=== PATIENT | female | born 1985 | race Caucasian/White ===

== ENCOUNTER 2019-12-06 19:03 | Inpatient (IN) | payer OTHER, SELFPAY ==
[2019-12-06] VITALS (8 sets, daily range): BP systolic 117–150; BP diastolic 71–119; PULSE 62–124; RESP 16–20; TEMP 36.6; O2SAT 95–98
--- NOTE | ~2019-12-06 | CT_ITS ---
EXAMINATION: CT abdomen pelvis w con DATE: 12/06/2019 20:20 INDICATION: Generalized abdominal pain. TECHNIQUE: Computed tomography (CT) of the abdomen and pelvis was performed with 100 cc Omnipaque 350 intravenous contrast. Automated exposure control and iterative reconstruction technique were employe d. Exam dose: 261.42 mGy-cm total exam DLP. COMPARISON: None. FINDINGS: The lung bases are clear of infiltrate or consolidation. Normal heart size. No pericardial or pleural effusion. The gallbladder is present. No gallbladder wall thickening. There is diffuse hepatic steatosis. No hepatic space-occupying mass lesion or intrahepatic or extrahe patic bile duct dilatation. No pancreatic mass lesion, calcification or ductal dilatation. Normal spl enic size. Normal morphology of the adrenal glands. No renal mass lesion, but there is evidence of mild bilateral chronic pyelonephritis, with mild left greater than right scarring of the renal outlines. There are scattered small focal areas of diminishe d enhancement of the parenchyma of the left kidney which might be secondary to acute pyelonephritis; recommend clinical correlation. No urinary tract calculus or hydroureteronephrosis. Retroverted uterus. No adnexal mass lesion. No abnormal pelvic free fluid collection is evident. Normal caliber of the abdominal aorta. No intraperitoneal or retroperitoneal or pelvic mass lesion or adenopathy or ascites. Normal appendix. No bowel obstruction or intraperitoneal free air. Small fat-containing umbilical hernia. There is prominent cupping of the superior vertebral endplate of T11 consistent with likely chronic c ompression fracture deformity. Included skeletal structures are otherwise unremarkable. IMPRESSION: Hepatic steatosis Bilateral mild chronic pyelonephritis Cannot exclude mild scattered areas of acute bilateral nephritis of left kidney; clinical correlation is advised Chronic mild compression fracture deformity of T11 Reviewed, dictated and finalized at [facility]. Reviewed, dictated and finalized at [facility]. IMPRESSION: Hepatic steatosis Bilateral mild chronic pyelonephritis Cannot exclude mild scattered areas of acute bilateral nephritis of left kidney ; clinical correlation is advised Chronic mild compression fracture deformity of T11
--- NOTE | 2019-12-06 19:35 | PC.NURSE ---
asked pt for urine. pt does not think she can void at this time.
[2019-12-06 19:44] LABS: Basophils Percent Auto 0.5 % (0.2-1.2); Eosinophils Percent Auto 0.5 % (0-4.4); Hematocrit 38.3 % (37.0-47.0); Immature Platelet Fraction Pct 3.5 % (0.9-11.2); Lymphocytes Absolute Auto 2.44 K/mm3 (0.9-3.2); Lymphocytes Percent Auto 57.3 % (18.3-44.2); Mean Corpuscular HGB Conc 33.9 g/dl (32-36); Mean Corpuscular Hemoglobin 31.6 pg (26-34); Mean Corpuscular Volume 93.2 fl (80-100); Mean Platelet Volume 9.8 fl (7.4-10.4); Monocytes Absolute Auto 0.4 K/mm3 (0.1-0.6); Monocytes Percent Auto 8.2 % (2.6-8.5); Neutrophils Absolute Auto 1.4 K/mm3 (1.3-6.7); Neutrophils Percent Auto 33.5 % (45.5-73.1); Platelet Count Result 96 k/mm3 (150-375); Red Blood Count 4.11 M/mm3 (4.2-5.4); Red Cell Distribution Width 14.3 % (11.5-14.5); White Blood Count 4.3 K/mm3 (4.5-10.0)
[2019-12-06 19:53] LABS: Alanine Aminotransferase 59 U/L (4-35); Albumin Level 4.7 g/dL (3.5-5.1); Alkaline Phosphatase 135 U/L (38-126); Aspartate Amino Transferase 142 U/L (14-36); Bilirubin,Total 0.5 mg/dL (0.2-1.3); Blood Urea Nitrogen 4 mg/dL (7-17); Calcium 8.5 mg/dL (8.4-10.2); Carbon Dioxide 24 mmol/L (22-30); Chloride 104 mmol/L (98-107); Estimated CRCL calculation 114 ml/min; Estimated Glomerular Filt Rate > 60; Glucose 88 mg/dL (65-105); Lipase 100 U/L (23-300); Potassium 4.1 mmol/L (3.4-5.0); Sodium 142 mmol/L (137-145)
[2019-12-06 20:00] LABS: Add Urine Microscopic? YES; Appearance Urine Clear (Clear); Bacteria Urine Trace /hpf; Bilirubin Urine Negative (Negative); Blood Urine 1+ (Negative); Color Urine Yellow (Yellow); Glucose Urine UA Negative (Negative); Hyaline Casts Urine 15-19 /lpf; Ketones Urine Negative (Negative); Leukocyte Esterase Ur Negative LEU/UL (Negative); Mucus Urine Rare /lpf; Nitrate Urine Negative (Negative); Protein Urine 1+ mg/dL (Negative); RBC Urine 0-2 /hpf (0-2); Specific Grav Ur 1.012 (1.001-1.035); Squamous Epithelial Cell Urine Many /hpf (Few); Urobilinogen Urine Negative mg/dL (<2.0); WBC Urine 0-3 /hpf
--- NOTE | 2019-12-06 20:05 | ED.ABDPAIN ---
HPI - Abdominal Pain General Chief Complaint: Abdominal Pain <Steffi Yuan MD - Last Filed: 12/06/19 23:04> Stated Complaint: abd pain/ etoh <Steffi Yuan MD - Last Filed: 12/06/19 23:04> Time Seen by Provider: 12/06/19 19:56 <Steffi Yuan MD - Last Filed: 12/06/19 23:04> History of Present Illness HPI narrative: Patient presents via EMS for diffuse abdominal pain and vomiting. She appears and smells intoxicated. She said that yesterday she drank too much, and has been vomiting since. She says abdominal pain is diffuse and not worse with palpitation. She lives alone, is unemployed, and does not have anyone to call to pick her up. <Steffi Yuan MD - Last Filed: 12/06/19 23:04> MD elicited complaint: abdominal pain <Steffi Yuan MD - Last Filed: 12/06/19 23:04> Pertinent past history: other (Alcoholic) <Steffi Yuan MD - Last Filed: 12/06/19 23:04> Onset (ago): day(s) <Steffi Yuan MD - Last Filed: 12/06/19 23:04> Pain Consistency: constant <Steffi Yuan MD - Last Filed: 12/06/19 23:04> Location: diffuse <Steffi Yuan MD - Last Filed: 12/06/19 23:04> Severity: moderate <Steffi Yuan MD - Last Filed: 12/06/19 23:04> Quality: aching <Steffi Yuan MD - Last Filed: 12/06/19 23:04> Exacerbating factors: vomiting <Steffi Yuan MD - Last Filed: 12/06/19 23:04> Relieving factors: nothing <Steffi Yuan MD - Last Filed: 12/06/19 23:04> Associated symptoms: nausea and vomiting <Steffi Yuan MD - Last Filed: 12/06/19 23:04> Treatments prior to arrival: other (None) <Steffi Yuan MD - Last Filed: 12/06/19 23:04> Related Data Home Medications: Home Medications Medication Instructions Recorded Confirmed chlordiazepoxide HCl 12/06/19 famotidine 12/07/19 12/07/19 folic acid 12/07/19 levetiracetam PO 12/07/19 metoprolol succinate PO 12/07/19 multivitamin tablet 12/07/19 paroxetine HCl mg PO 12/07/19 potassium chloride meq PO 12/07/19 thiamine mononitrate (vit B1) 12/07/19 [Vitamin B-1 (mononitrate)] <Steffi Yuan MD - Last Filed: 12/06/19 23:04> Allergies/Adverse Reactions: Allergies Allergy/AdvReac Type Severity Reaction Status Date / Time No Known Allergies Allergy Verified 12/06/19 19:23 <Steffi Yuan MD - Last Filed: 12/06/19 23:04> Review of Systems Review of Systems: Narrative: CONSTITUTIONAL: Denies fever, chills, or sweats. EYES: Denies visual changes, redness, or discharge. ENT: Denies rhinorrhea, congestion, sore throat, or otalgia. CARDIOVASCULAR: Denies chest pain, palpitations, or edema. RESPIRATORY: Denies cough or dyspnea. GASTROINTESTINAL: Denies diarrhea. GENITOURINARY: Denies dysuria or hematuria. SKIN: Denies rash or itching. MUSCULOSKELETAL: Denies back pain, joint pain, or myalgia. NEUROLOGIC: Denies headache, numbness, or weakness. PSYCHIATRIC: Denies anxiety or depression. <Steffi Yuan MD - Last Filed: 12/06/19 23:04> All systems reviewed & are unremarkable except as noted in HPI and below <Steffi Yuan MD - Last Filed: 12/06/19 23:04> [facility] Past Medical History Medical History: Medical History Hypertension Migraines Seizures Systemic lupus erythematosus <Steffi Yuan MD - Last Filed: 12/06/19 23:04> Surgical History Surgical History: Surgical History History of tonsillectomy <Steffi Yuan MD - Last Filed: 12/06/19 23:04> Social History Social History: Social History Smoking status: Former smoker Alcohol intake: current Substance use: never Gender identity (if verbalized by the patient): Female <Steffi Yuan MD - Last Filed: 12/06/19 23:04> Exam Narrative: Exam Narrative: GENERAL: intoxicated, slurred speech, hand trem
[2019-12-06] MEDS: ONDANSETRON INJ 4 MG/2 ML VIAL IV PUSH (20:10)
[2019-12-06 20:30] LABS: Ethanol 338 mg/dL (<10)
[2019-12-06] MEDS: KETOROLAC 15 MG/ML VIAL (*BKC) IV PUSH (21:14)
[2019-12-06] MEDS: SODIUM CHLORIDE 0.9% IV 1,000 ML 999 ML IV CONT (21:14)
[2019-12-06 23:36] LABS: Amphetamine Screen Urine Negative (Negative); Barbiturate Screen Urine Negative (Negative); Benzodiazepines Screen Urine Positive (Negative); Cannabinoid Screen Urine Negative (Negative); Cocaine Screen Urine Negative (Negative); Methadone Screen Urine Negative (Negative); Opiate Screen Urine Negative (Negative); Phencyclidine Screen Urine Negative (Negative)
[2019-12-07] VITALS (20 sets, daily range): BP systolic 100–145; BP diastolic 64–101; PULSE 53–125; RESP 16–23; TEMP 36.6–37.3; O2SAT 95–100; BMI 24.0
[2019-12-07] MEDS: METOPROLOL TARTRATE 50 MG TAB PO (00:22)
[2019-12-07] MEDS: LORAZEPAM INJ 2 MG/ML VIAL IV PUSH ×9 (00:48→21:10)
[2019-12-07] MEDS: LACTATED RINGERS 1,000 ML 150 ML IV CONT (00:48)
[2019-12-07 01:28] LABS: Glucose Point of Care 67 (65-105)
--- NOTE | 2019-12-07 02:45 | PM.IMHP ---
H&P: HPI History of Present Illness Chief complaint: Alcoholism, Abdominal Pain Narrative: This is a 34 year old female with known history of seizure disorder, SLE, HTN, depression, and alcohol abuse who presented to the hospital yesterday evening intoxicated. Her primary complaint on presentation to the ER tonight was diffuse abdominal pain. She admits to me that she has had severe symptoms of withdrawal including visible shaking/tremors, auditory and visual hallucinations, nausea and vomiting, anxiety, diaphoresis and a racing heart. She denies having any recent fevers, chest pain, coughing, shortness of breath, dysuria, hematuria, diarrhea or LE swelling. She does admit to me that she has had several falls and has bruising all over her body. The patient was evaluated in the ER last night and was found to have hepatic steatosis and bilateral mild chronic pyelonephritis on CT abd/pelvis. Routine labs demonstrated mildly elevated liver enzymes although she did not have an elevated WBC and her urinalysis was unremarkable. The patient was treated empirically with Zosyn IV in the ER?? End Touching Machine Operator was consulted and the patient was admitted to the ICU for acute alcohol withdrawal. Review of Systems Review of Systems: All systems reviewed & are unremarkable except as noted in HPI and below PMFSH Past Medical History Medical History Hypertension Migraines Seizures Systemic lupus erythematosus Surgical History Surgical History History of tonsillectomy Family History Family History Other Alcohol abuse Social History Social History Smoking status: Former smoker Alcohol intake: current Substance use: never Gender identity (if verbalized by the patient): Female Meds Home Medications and Allergies Home Medications Medication Instructions Recorded Confirmed Type chlordiazepoxide HCl 12/06/19 History famotidine 12/07/19 12/07/19 History folic acid 1 mg PO DAILY 12/07/19 12/07/19 History levetiracetam 1,500 mg PO DAILY 12/07/19 12/07/19 History metoprolol succinate 50 mg PO BID 12/07/19 12/07/19 History multivitamin 1 tablet PO DAILY 12/07/19 12/07/19 History paroxetine HCl 30 mg PO 4XW 12/07/19 12/07/19 History potassium chloride 20 meq PO DAILY 12/07/19 12/07/19 History thiamine mononitrate (vit B1) 100 mg PO DAILY 12/07/19 12/07/19 History [Vitamin B-1 (mononitrate)] Allergies Allergy/AdvReac Type Severity Reaction Status Date / Time No Known Allergies Allergy Verified 12/06/19 19:23 Vital Signs Vital Signs - 24 hr 12/06/19 19:12 12/06/19 19:45 12/06/19 20:06 Temperature 36.6 C Pulse Rate 62 124 H 119 H Respiratory Rate 16 18 18 Blood Pressure 117/71 144/102 H 150/112 H Pulse Oximetry 98 95 97 12/06/19 20:30 12/06/19 21:00 12/06/19 21:28 Temperature Pulse Rate 103 H 114 H 90 Respiratory Rate 18 19 17 Blood Pressure 124/89 140/96 H 138/110 H Pulse Oximetry 96 97 98 12/06/19 22:20 12/06/19 23:00 12/07/19 00:15 Temperature Pulse Rate 114 H 113 H 119 H Respiratory Rate 20 17 18 Blood Pressure 137/119 H 147/109 H 132/95 H Pulse Oximetry 96 97 98 12/07/19 00:22 12/07/19 00:43 12/07/19 01:28 Temperature Pulse Rate 123 H 125 H 102 H Respiratory Rate 18 17 Blood Pressure 132/95 H 135/100 H Pulse Oximetry 97 99 12/07/19 02:10 12/07/19 02:13 Temperature Pulse Rate 88 78 Respiratory Rate 23 H 23 H Blood Pressure 145/101 H 130/84 Pulse Oximetry 97 97 Exam Const: General: cooperative, alert, awake, acute distress, anxious, ill appearing, uncomfortable and other (visible asterixis++ ) Nutritional Appearance: overweight Orientation/consciousness: oriented to person and oriented to place HENMT: Head: normal to inspection General nose exa
[2019-12-07] MEDS: DEXTROSE 5%/0.9% SOD CHL 1,000 ML 120 ML IV CONT ×3 (03:27→20:59)
--- NOTE | 2019-12-07 03:47 | ADMIMU ---
This patient, Aidee Tomas, was admitted to ICU status, and placed in Intensive Care Unit-11 on 12/07/19 at 0220. Patient/family oriented to hospital policies and general routines including ID bracelet, bed and alarms, visiting hours, pain management, procedures, bathroom and other care routines, personal items, smoking policy, room service/diet, and visiting hours. Valuables list has been completed. Information on how to activate the Rapid Response Team has been discussed. Patient/Family are encouraged to report perceived risks to care and to ask questions if they do not understand what they are told or what they should do.
[2019-12-07 04:15] LABS: Basophils Percent Auto 0.4 % (0.2-1.2); Eosinophils Percent Auto 0.4 % (0-4.4); Hematocrit 30.9 % (37.0-47.0); Hemoglobin 10.2 g/dL (12.0-15.0); Immature Granulocyte Absolute 0.01 K/mm3 (0.00-0.031); Immature Granulocyte Percent A 0.2 % (0-0.5); Immature Platelet Fraction Pct 3.6 % (0.9-11.2); Lymphocytes Absolute Auto 1.29 K/mm3 (0.9-3.2); Lymphocytes Percent Auto 27.2 % (18.3-44.2); Mean Corpuscular Hemoglobin 31.6 pg (26-34); Mean Corpuscular Volume 95.7 fl (80-100); Mean Platelet Volume 9.5 fl (7.4-10.4); Monocytes Absolute Auto 0.5 K/mm3 (0.1-0.6); Monocytes Percent Auto 10.9 % (2.6-8.5); Neutrophils Absolute Auto 2.9 K/mm3 (1.3-6.7); Neutrophils Percent Auto 60.9 % (45.5-73.1); Platelet Count Result 63 k/mm3 (150-375); Red Blood Count 3.23 M/mm3 (4.2-5.4); Red Cell Distribution Width 14.2 % (11.5-14.5); White Blood Count 4.8 K/mm3 (4.5-10.0)
[2019-12-07 04:53] LABS: Blood Urea Nitrogen 3 mg/dL (7-17); Calcium 7.9 mg/dL (8.4-10.2); Carbon Dioxide 24 mmol/L (22-30); Chloride 101 mmol/L (98-107); Estimated CRCL calculation 125 ml/min; Estimated Glomerular Filt Rate > 60; Glucose 85 mg/dL (65-105); Potassium 3.3 mmol/L (3.4-5.0); Sodium 135 mmol/L (137-145)
[2019-12-07 05:00] LABS: Glucose Point of Care 96 (65-105)
[2019-12-07 05:09] LABS: Glucose Point of Care 68 (65-105)
[2019-12-07] MEDS: LORAZEPAM INJ 2 MG/ML VIAL 1 MG IV PUSH ×2 (07:28→11:59)
--- NOTE | 2019-12-07 08:22 | WPDCNINT ---
Assessment and Plan Assessment and plan (1) Delirium tremens: Code(s): F10.231 - Alcohol dependence with withdrawal delirium Status: Acute Assessment and Plan: patient at this time is on Precedex infusion Although at a very low rate she is also getting p.r.n. Ativan continue CIWA monitoring IV fluids thiamine and folic acid p.r.n. Ativan dosing as per CIWA score will start p.o. Librium will try to wean off Precedex infusion if symptoms can be tolerated with p.o. and p.r.n. IV benzodiazepines (2) Alcohol withdrawal: Qualifiers: Complication of substance-induced condition: with perceptual disturbance Qualified Code(s): F10.232 - Alcohol dependence with withdrawal with perceptual disturbance Code(s): F10.239 - Alcohol dependence with withdrawal, unspecified Status: Acute Assessment and Plan: see above (3) Hypertension: Qualifiers: Hypertension type: unspecified Qualified Code(s): I10 - Essential (primary) hypertension Code(s): I10 - Essential (primary) hypertension Status: Chronic Assessment and Plan: monitor and treat as needed blood pressure is controlled at this time (4) Seizures: Code(s): R56.9 - Unspecified convulsions Status: Chronic Assessment and Plan: continue Keppra (5) Abdominal pain: Qualifiers: Abdominal location: unspecified location Qualified Code(s): R10.9 - Unspecified abdominal pain Code(s): R10.9 - Unspecified abdominal pain Status: Acute Assessment and Plan: LFTs suggest alcoholic hepatitis and fatty liver CT abdomen pelvis reviewed lipase was normal (6) Alcohol induced fatty liver: Code(s): K70.0 - Alcoholic fatty liver Status: Acute Assessment and Plan: bilirubin is normal but AST and ALT are elevated monitor levels CT abdomen pelvis was reviewed (7) Thrombocytopenia: Code(s): D69.6 - Thrombocytopenia, unspecified Status: Acute Assessment and Plan: likely secondary to alcohol abuse monitor levels SCDs for DVT prophylaxis Computer Systems Designer Consult Note Consult date: 12/07/19 Time Seen: 08:15 HPI: Aidee Tomas is a 34 year old female With past medical history of seizure disorder, hypertension and alcohol abuse presented to the hospital yesterday with abdominal pain. Patient was drinking alcohol at home and was intoxicated on presentation. CT abdomen pelvis was done in the ER which was unremarkable. Other labs are also unremarkable. On exam patient was tremulous. Patient was admitted with diagnosis of alcohol withdrawal and given Ativan and then started on Precedex infusion and admitted to ICU.. This morning when I saw the patient patient continues to be tremulous. She states that she has been drinking a lot at home. And has shaking all the time. She states she falls often and and hurts all over her body. She feels she is not safe at home. She denies any physical assault and abuse. She lives alone and does not have any boyfriend or . Overnight patient was on very low-dose of Precedex infusion, IV fluids and was getting p.r.n. Ativan. Review of Systems Constitutional: Constitutional: Reports fever(s) ( Patient states that she has fever but unable to give me any other details), Reports lethargy, Reports malaise, Reports poor appetite and Reports weakness Comments: she is also not sure about fever but states that she may be having it from alcohol withdrawal Eyes: Eyes: Reports no additional eye complaints ENT: Reports system reviewed and no additional complaints, except as documented Cardiovascular: Cardiovascular: Reports no additional cardiovascular complaints Respiratory: Respiratory: Reports cough Comments: occasional Gastrointestinal: Gastrointestinal: Reports no additional gastrointestinal complaints Genitourinary: Genitourinary: Reports no additional female genitourinary
[2019-12-07] MEDS: THIAMINE HCL 200 MG/2 ML VIAL 100 MG IV PUSH (09:01)
[2019-12-07] MEDS: ONDANSETRON INJ 4 MG/2 ML VIAL IV PUSH ×3 (09:01→18:08)
--- NOTE | 2019-12-07 10:19 | PM.IMPN ---
Progress Note: A&P Assessment and Plan (1) Delirium tremens: Code(s): F10.231 - Alcohol dependence with withdrawal delirium Status: Acute Assessment and Plan: Reported to have both visual and auditory hallucinations on admission but patient not complaining of hallucinations at this time. Still with tremors. Appreciate help from industrial pipefitter journeyman. Currently on IV Precedex but wean as tolerated. IV lorazepam available as needed. Started on oral scheduled Librium today. Advised patient she does need to pursue rehab for her alcoholism. She reports she has been hospitalized at [facility] for this previously and is currently on a waiting list to return. Will continue to monitor in ICU today. (2) Alcohol withdrawal: Qualifiers: Complication of substance-induced condition: with perceptual disturbance Qualified Code(s): F10.232 - Alcohol dependence with withdrawal with perceptual disturbance Code(s): F10.239 - Alcohol dependence with withdrawal, unspecified Status: Acute Assessment and Plan: Continue CIWA-AR protocol. Seizure precautions. IV Ativan available as noted above. Continue thiamine and folic acid. (3) Alcoholic hepatitis: Qualifiers: Ascites presence: without ascites Qualified Code(s): K70.10 - Alcoholic hepatitis without ascites Code(s): K70.10 - Alcoholic hepatitis without ascites Status: Acute Assessment and Plan: AST 142 with ALT 59 on admission. Result of alcohol use. Will continue to monitor. (4) Seizures: Code(s): R56.9 - Unspecified convulsions Status: Chronic Assessment and Plan: On IV Keppra as noted above. Transition back to oral Keppra when appropriate. (5) Hypertension: Qualifiers: Hypertension type: unspecified Qualified Code(s): I10 - Essential (primary) hypertension Code(s): I10 - Essential (primary) hypertension Status: Chronic Assessment and Plan: Blood pressure reviewed on 12/07/2019. Initially elevated and most likely result of acute withdrawal. Blood pressure is now low normal. Continue to hold oral home metoprolol. Will continue to monitor. (6) Systemic lupus erythematosus: Qualifiers: Systemic lupus erythematosus type: unspecified Systemic lupus erythematosus organ involvement: unspecified Qualified Code(s): M32.9 - Systemic lupus erythematosus, unspecified Code(s): M32.9 - Systemic lupus erythematosus, unspecified Status: Chronic Assessment and Plan: Stable. Not on medication at home. (7) DVT prophylaxis: Code(s): Z29.9 - Encounter for prophylactic measures, unspecified Status: Acute Assessment and Plan: SCDs. Time Spent With Patient Time with patient: 15 - 25 minutes Subjective Date/time seen: 12/07/19 10:19 Interval history: Date of Service: 12/07/2019. Admitted with alcohol withdrawal including hallucinosis/tremors. Patient in ICU. Patient states not doing well today. Complains of headache and dizziness as well as shaking. Also complains of nausea but no vomiting or abdominal pain. No chest pain or shortness of breath. Known alcoholism. Reports falling frequently at home. Review of Systems Review of Systems: Narrative: Does not feel well. Constitutional: Constitutional: Denies chills and Denies fever(s) ENT: Denies dysphagia Cardiovascular: Cardiovascular: Denies chest pain Respiratory: Respiratory: Denies dyspnea Gastrointestinal: Gastrointestinal: Denies abdominal pain, Reports nausea and Denies vomiting Genitourinary: Genitourinary: Reports no additional female genitourinary complaints Integumentary/Breasts: Comments: Bruising Neurologic: Reports dizziness, Reports frequent falls and Reports headache(s) Comments: Shaking Psychiatric: Psychiatric: Denies confusion Exam Narrative: Exam Narrative: Awake and alert. Const: General: no acute distress HENMT: Mouth: Yes mois
[2019-12-07 10:48] LABS: Beta HCG Quantitative < 2.39 mIU/ML
[2019-12-07] MEDS: CHLORDIAZEPOXIDE 25 MG CAPSULE 50 MG PO ×2 (11:44→18:08)
[2019-12-07] MEDS: FOLIC ACID 1 MG TABLET PO (11:46)
[2019-12-07 12:06] LABS: Glucose Point of Care 88 (65-105)
[2019-12-07] MEDS: MULTIVITAMINS THERAPEUTIC TAB (*BKC) 1 TABLET PO (13:10)
[2019-12-07 18:17] LABS: Glucose Point of Care 139 (65-105)
[2019-12-08] VITALS (12 sets, daily range): BP systolic 110–150; BP diastolic 82–121; PULSE 48–116; RESP 12–22; TEMP 36.8–37.3; O2SAT 97–100; BMI 24.0
[2019-12-08] MEDS: CHLORDIAZEPOXIDE 25 MG CAPSULE 50 MG PO ×4 (02:58→20:06)
[2019-12-08] MEDS: LORAZEPAM INJ 2 MG/ML VIAL IV PUSH ×10 (02:58→23:33)
[2019-12-08] MEDS: DEXTROSE 5%/0.9% SOD CHL 1,000 ML 120 ML IV CONT (04:53)
[2019-12-08 04:56] LABS: Hematocrit 30.6 % (37.0-47.0); Hemoglobin 10.3 g/dL (12.0-15.0); Immature Platelet Fraction Pct 5.6 % (0.9-11.2); Mean Corpuscular HGB Conc 33.7 g/dl (32-36); Mean Corpuscular Hemoglobin 31.9 pg (26-34); Mean Corpuscular Volume 94.7 fl (80-100); Mean Platelet Volume 10.3 fl (7.4-10.4); Platelet Count Result 69 k/mm3 (150-375); Red Blood Count 3.23 M/mm3 (4.2-5.4); Red Cell Distribution Width 13.6 % (11.5-14.5); White Blood Count 2.4 K/mm3 (4.5-10.0)
[2019-12-08 05:26] LABS: Alanine Aminotransferase 33 U/L (4-35); Albumin Level 3.2 g/dL (3.5-5.1); Alkaline Phosphatase 90 U/L (38-126); Aspartate Amino Transferase 65 U/L (14-36); Bilirubin,Total 0.6 mg/dL (0.2-1.3); Calcium 8.1 mg/dL (8.4-10.2); Carbon Dioxide 26 mmol/L (22-30); Chloride 105 mmol/L (98-107); Estimated CRCL calculation 125 ml/min; Estimated Glomerular Filt Rate > 60; Glucose 162 mg/dL (65-105); Magnesium 1.7 mg/dL (1.6-2.3); Potassium 2.7 mmol/L (3.4-5.0); Sodium 137 mmol/L (137-145)
[2019-12-08 05:59] LABS: Blood Urea Nitrogen < 2 mg/dL (7-17)
--- NOTE | 2019-12-08 07:15 | WPDINTPN ---
Progress Note: A&P Assessment and Plan (1) Delirium tremens: Code(s): F10.231 - Alcohol dependence with withdrawal delirium Status: Acute Assessment and Plan: patient is receiving Ativan dosing guided by her CIWA score and is also on low-dose Precedex infusion after review with night nurse and day nurse it appears the patient does exhibit drug-seeking behavior. If patient is monitored without her being aware no tremors are seen on movement but once patient is examined the tremors are exaggerated. Patient is also not showing any objective signs of send severe DTs as her heart rate and blood pressure are normal range. Patient does get focused on her Ativan and does and every time she is awake she calls nurse to ask for IV Ativan dose keeping that in mind patient does have history of alcohol abuse and may still have mild symptoms that she is exaggerating I will continue p.o. Librium, CIWA monitoring, and CIWA score guided Ativan dosing also continue IV fluids, thiamine and folic acid will try to wean off Precedex infusion if symptoms can be tolerated with p.o. and p.r.n. IV benzodiazepines (2) Alcohol withdrawal: Qualifiers: Complication of substance-induced condition: with perceptual disturbance Qualified Code(s): F10.232 - Alcohol dependence with withdrawal with perceptual disturbance Code(s): F10.239 - Alcohol dependence with withdrawal, unspecified Status: Acute Assessment and Plan: see above (3) Hypertension: Qualifiers: Hypertension type: unspecified Qualified Code(s): I10 - Essential (primary) hypertension Code(s): I10 - Essential (primary) hypertension Status: Chronic Assessment and Plan: monitor and treat as needed blood pressure is controlled at this time (4) Seizures: Code(s): R56.9 - Unspecified convulsions Status: Chronic Assessment and Plan: continue Keppra (5) Abdominal pain: Qualifiers: Abdominal location: unspecified location Qualified Code(s): R10.9 - Unspecified abdominal pain Code(s): R10.9 - Unspecified abdominal pain Status: Acute Assessment and Plan: LFTs suggest alcoholic hepatitis and fatty liver CT abdomen pelvis reviewed lipase was normal (6) Alcohol induced fatty liver: Code(s): K70.0 - Alcoholic fatty liver Status: Acute Assessment and Plan: bilirubin is normal but AST and ALT are elevated but improving monitor levels CT abdomen pelvis was reviewed (7) Thrombocytopenia: Code(s): D69.6 - Thrombocytopenia, unspecified Status: Acute Assessment and Plan: likely secondary to alcohol abuse monitor levels SCDs for DVT prophylaxis (8) Hypokalemia: Code(s): E87.6 - Hypokalemia Status: Acute Assessment and Plan: p.o. and IV replacement ordered. will recheck later in the day Subjective Date/time seen: 12/08/19 0715 patient feels that she has not improved since yesterday. Continues to complain of tremors and complains of hallucinations. she feels weak generalized Interval history: 12/07/2019. Admitted with alcohol withdrawal including hallucinosis/tremors. Patient in ICU. started on CIWA protocol and IV Precedex Review of Systems Constitutional: Constitutional: Reports fatigue, Reports fever(s) ( Patient states that she has fever but unable to give me any other details), Reports frequent falls, Reports lethargy, Reports malaise, Reports poor appetite and Reports weakness Eyes: Eyes: Reports no additional eye complaints ENT: Reports system reviewed and no additional complaints, except as documented Cardiovascular: Cardiovascular: Reports no additional cardiovascular complaints Gastrointestinal: Gastrointestinal: Reports no additional gastrointestinal complaints Genitourinary: Genitourinary: Reports no additional female genitourinary complaints Integumentary/Breas
[2019-12-08] MEDS: FOLIC ACID 1 MG TABLET PO (08:32)
[2019-12-08] MEDS: THIAMINE HCL 100 MG TABLET PO (08:32)
[2019-12-08] MEDS: MULTIVITAMINS THERAPEUTIC TAB (*BKC) 1 TABLET PO (08:32)
[2019-12-08] MEDS: POTASSIUM CHLORIDE 20 MEQ TABLET 40 MEQ PO (08:46)
[2019-12-08] MEDS: LORAZEPAM INJ 2 MG/ML VIAL 1 MG IV PUSH ×2 (10:10→14:44)
[2019-12-08 12:48] LABS: Glucose Point of Care 105 (65-105)
[2019-12-08] MEDS: LORAZEPAM 1 MG TABLET PO (13:28)
[2019-12-08] MEDS: DEXTROSE 5%/0.9% SOD CHL 1,000 ML 75 ML IV CONT (14:08)
[2019-12-08 15:00] LABS: Calcium 8.2 mg/dL (8.4-10.2); Carbon Dioxide 18 mmol/L (22-30); Chloride 110 mmol/L (98-107); Estimated CRCL calculation 125 ml/min; Estimated Glomerular Filt Rate > 60; Glucose 108 mg/dL (65-105); Potassium 4.7 mmol/L (3.4-5.0); Sodium 136 mmol/L (137-145)
[2019-12-08 15:06] LABS: Blood Urea Nitrogen < 2 mg/dL (7-17)
[2019-12-08] MEDS: PANTOPRAZOLE SODIUM IV 40 MG VIAL IV PUSH (16:35)
--- NOTE | 2019-12-08 18:48 | PM.IMPN ---
Progress Note: A&P Assessment and Plan (1) Delirium tremens: Code(s): F10.231 - Alcohol dependence with withdrawal delirium Status: Acute Assessment and Plan: Reported to have both visual and auditory hallucinations on admission but patient not complaining of hallucinations at this time. Still with tremors. Appreciate help from engineering technical writer. Currently on IV Precedex but wean as tolerated. IV lorazepam available as needed. Started on oral scheduled Librium today. Advised patient she does need to pursue rehab for her alcoholism. She reports she has been hospitalized at [facility] for this previously and is currently on a waiting list to return. Will continue to monitor in ICU today. 12/08/2019. Admitted with alcohol withdrawal including hallucinosis/tremors. Patient in ICU. started on CIWA protocol and IV Precedex, today patient is off Precedex however see keep requesting Ativan [id number] specially when a provided is present, patient on scheduled Librium will taper it as her symptoms improved and stable, otherwise patient is comfortable while sleeping and does not show any sign of tremors per nursing staff, it appears patient has and drug-seeking tendency. (2) Alcohol withdrawal: Qualifiers: Complication of substance-induced condition: with perceptual disturbance Qualified Code(s): F10.232 - Alcohol dependence with withdrawal with perceptual disturbance Code(s): F10.239 - Alcohol dependence with withdrawal, unspecified Status: Acute Assessment and Plan: Continue CIWA-AR protocol. Seizure precautions. IV Ativan available as noted above. Continue thiamine and folic acid. (3) Alcoholic hepatitis: Qualifiers: Ascites presence: without ascites Qualified Code(s): K70.10 - Alcoholic hepatitis without ascites Code(s): K70.10 - Alcoholic hepatitis without ascites Status: Acute Assessment and Plan: AST 142 with ALT 59 on admission. Result of alcohol use. Will continue to monitor. (4) Seizures: Code(s): R56.9 - Unspecified convulsions Status: Chronic Assessment and Plan: On IV Keppra as noted above. Transition back to oral Keppra when appropriate. (5) Hypertension: Qualifiers: Hypertension type: unspecified Qualified Code(s): I10 - Essential (primary) hypertension Code(s): I10 - Essential (primary) hypertension Status: Chronic Assessment and Plan: Blood pressure reviewed on 12/08/2019. Initially elevated and most likely result of acute withdrawal. Blood pressure is now normal. Continue to hold oral home metoprolol. Will continue to monitor. (6) Systemic lupus erythematosus: Qualifiers: Systemic lupus erythematosus type: unspecified Systemic lupus erythematosus organ involvement: unspecified Qualified Code(s): M32.9 - Systemic lupus erythematosus, unspecified Code(s): M32.9 - Systemic lupus erythematosus, unspecified Status: Chronic Assessment and Plan: Stable. Not on medication at home. (7) DVT prophylaxis: Code(s): Z29.9 - Encounter for prophylactic measures, unspecified Status: Acute Assessment and Plan: SCDs. Subjective Date/time seen: 12/08/19 18:48 Interval history: 12/08/2019. Admitted with alcohol withdrawal including hallucinosis/tremors. Patient in ICU. started on CIWA protocol and IV Precedex, today patient is off Precedex however see keep requesting Ativan [id number] specially when a provided is present, otherwise patient is comfortable while sleeping and does not show any sign of tremors per nursing staff, it appears patient has and drug-seeking tendency. Review of Systems Review of Systems: All systems reviewed & are unremarkable except as noted in HPI and below Exam Const: General: comfortable and no acute distress HENMT: General nose exam: Normal nares present Mouth: Yes moist mucous membranes Eyes:
[2019-12-08 19:00] LABS: Glucose Point of Care 109 (65-105)
[2019-12-08] MEDS: levETIRAcetam Tablet 250 MG, levETIRAcetam Tablet 500 MG 750 MG PO (20:06)
[2019-12-08] MEDS: ONDANSETRON INJ 4 MG/2 ML VIAL IV PUSH (20:16)
[2019-12-09] VITALS (16 sets, daily range): BP systolic 121–158; BP diastolic 71–129; PULSE 60–133; RESP 13–24; TEMP 36.4–36.9; O2SAT 94–100
[2019-12-09] MEDS: LORAZEPAM INJ 2 MG/ML VIAL IV PUSH ×13 (00:44→23:21)
[2019-12-09] MEDS: DEXTROSE 5%/0.9% SOD CHL 1,000 ML 75 ML IV CONT (01:48)
[2019-12-09] MEDS: CHLORDIAZEPOXIDE 25 MG CAPSULE 50 MG PO (02:53)
[2019-12-09 05:01] LABS: Hematocrit 30.8 % (37.0-47.0); Hemoglobin 10.4 g/dL (12.0-15.0); Mean Corpuscular HGB Conc 33.8 g/dl (32-36); Mean Corpuscular Hemoglobin 32.2 pg (26-34); Mean Corpuscular Volume 95.4 fl (80-100); Mean Platelet Volume 10.7 fl (7.4-10.4); Platelet Count Result 86 k/mm3 (150-375); Red Blood Count 3.23 M/mm3 (4.2-5.4); Red Cell Distribution Width 14.2 % (11.5-14.5); White Blood Count 2.9 K/mm3 (4.5-10.0)
[2019-12-09 05:45] LABS: Alanine Aminotransferase 31 U/L (4-35); Albumin Level 3.4 g/dL (3.5-5.1); Alkaline Phosphatase 83 U/L (38-126); Aspartate Amino Transferase 72 U/L (14-36); Bilirubin,Total 0.7 mg/dL (0.2-1.3); Calcium 8.3 mg/dL (8.4-10.2); Carbon Dioxide 26 mmol/L (22-30); Chloride 106 mmol/L (98-107); Estimated CRCL calculation 125 ml/min; Estimated Glomerular Filt Rate > 60; Glucose 105 mg/dL (65-105); Magnesium 1.5 mg/dL (1.6-2.3); Potassium 2.7 mmol/L (3.4-5.0); Sodium 137 mmol/L (137-145)
[2019-12-09 06:06] LABS: Blood Urea Nitrogen < 2 mg/dL (7-17)
--- NOTE | 2019-12-09 07:00 | WPDINTPN ---
Progress Note: A&P Assessment and Plan (1) Delirium tremens: Code(s): F10.231 - Alcohol dependence with withdrawal delirium Status: Acute Assessment and Plan: patient is receiving Ativan dosing guided by her CIWA score and is also on low-dose Precedex infusion after review with nursing staff and my exam in observation it appears the patient does exhibit drug-seeking behavior. If patient is monitored without her being aware no tremors are seen on movement but once patient is examined the tremors are exaggerated. Patient is also not showing any objective signs of severe DTs as her heart rate and blood pressure are normal range. Patient does get focused on her Ativan and every time she is awake she calls nurse to ask for IV Ativan dose keeping that in mind patient does have history of alcohol abuse and may still have mild symptoms that she is exaggerating I will continue p.o. Librium, CIWA monitoring, and CIWA score guided Ativan dosing. increase Librium dose also continue IV fluids, thiamine and folic acid I have encouraged patient to not focus on specific medicine and dose. encouraged to work with physical therapy, get out of bed, work on incentive spirometer and keep her windows open during the day (2) Alcohol withdrawal: Qualifiers: Complication of substance-induced condition: with perceptual disturbance Qualified Code(s): F10.232 - Alcohol dependence with withdrawal with perceptual disturbance Code(s): F10.239 - Alcohol dependence with withdrawal, unspecified Status: Acute Assessment and Plan: see above (3) Hypertension: Qualifiers: Hypertension type: unspecified Qualified Code(s): I10 - Essential (primary) hypertension Code(s): I10 - Essential (primary) hypertension Status: Chronic Assessment and Plan: monitor and treat as needed blood pressure is controlled at this time (4) Seizures: Code(s): R56.9 - Unspecified convulsions Status: Chronic Assessment and Plan: continue Keppra (5) Abdominal pain: Qualifiers: Abdominal location: unspecified location Qualified Code(s): R10.9 - Unspecified abdominal pain Code(s): R10.9 - Unspecified abdominal pain Status: Acute Assessment and Plan: LFTs suggest alcoholic hepatitis and fatty liver CT abdomen pelvis reviewed lipase was normal (6) Alcohol induced fatty liver: Code(s): K70.0 - Alcoholic fatty liver Status: Acute Assessment and Plan: bilirubin is normal but AST and ALT are elevated but improving monitor levels CT abdomen pelvis was reviewed (7) Thrombocytopenia: Code(s): D69.6 - Thrombocytopenia, unspecified Status: Acute Assessment and Plan: likely secondary to alcohol abuse monitor levels SCDs for DVT prophylaxis (8) Hypokalemia: Code(s): E87.6 - Hypokalemia Status: Acute Assessment and Plan: potassium and magnesium replacement ordered advance diet. Patient wants to eat mashed potatoes. Will change to regular out of bed and up in chair physical therapy incentive spirometer transfer out of ICU today Subjective Date/time seen: 12/09/19 0700 overnight events reviewed patient overnight requested Ativan drip this morning she states she continues to have tremors, she also states she has auditory and visual hallucinations nausea but no vomiting feels weak Interval history: 12/07/2019. Admitted with alcohol withdrawal including hallucinosis/tremors. Patient in ICU. started on CIWA protocol and IV Precedex. 12/07 - Precedex was weaned off Review of Systems Review of Systems: All systems reviewed & are unremarkable except as noted in HPI and below Exam Narrative: Exam Narrative: General: Pt is alert awake and in NAD Lungs/Chest: Trachea central Clear BS B/L, No crackles or wheezing. Cardiac: RRR. Normal S1 S2. No murm
[2019-12-09] MEDS: CHLORDIAZEPOXIDE 25 MG CAPSULE 75 MG PO ×3 (08:11→20:45)
[2019-12-09] MEDS: POTASSIUM CHLORIDE 20 MEQ TABLET.ER 40 MEQ PO (08:13)
[2019-12-09] MEDS: FOLIC ACID 1 MG TABLET PO (08:13)
[2019-12-09] MEDS: levETIRAcetam Tablet 250 MG, levETIRAcetam Tablet 500 MG 750 MG PO ×2 (08:13→20:46)
[2019-12-09] MEDS: MULTIVITAMINS THERAPEUTIC TAB (*BKC) 1 TABLET PO (08:14)
[2019-12-09] MEDS: PANTOPRAZOLE SODIUM IV 40 MG VIAL IV PUSH (08:14)
[2019-12-09] MEDS: THIAMINE HCL 100 MG TABLET PO (08:14)
[2019-12-09] MEDS: MAGNESIUM SULF 2 GM/WATER 50ML 2 GM/50 ML BAG IVPB (08:19)
[2019-12-09] MEDS: ONDANSETRON INJ 4 MG/2 ML VIAL IV PUSH ×2 (08:20→18:29)
--- NOTE | 2019-12-09 11:48 | PCPTNOTE ---
Assessment of sit<>stand from bed with CGA for balance, CGA for bed<>chair for balance and safety. She required CGA for static standing without UE support.
[2019-12-09] MEDS: NEOMYCIN/POLYMYXIN/BACITRACIN OINTMENT 15 GM TUBE 1 APPLIC TOPICAL (12:51)
--- NOTE | 2019-12-09 16:51 | PC.NURSE ---
This patient, Aidee Tomas, was transferred to [facility] on 12/09/19 at 1645. Personal belongings sent with patient. Belongings list checked and signed with receiving [ ]. Report given to TYLER Kirby. Appropriate documentation sent with patient.
[2019-12-09 17:10] LABS: Calcium 8.7 mg/dL (8.4-10.2); Carbon Dioxide 26 mmol/L (22-30); Chloride 107 mmol/L (98-107); Estimated CRCL calculation 125 ml/min; Estimated Glomerular Filt Rate > 60; Glucose 97 mg/dL (65-105); Magnesium 2.2 mg/dL (1.6-2.3); Potassium 3.6 mmol/L (3.4-5.0); Sodium 138 mmol/L (137-145)
[2019-12-09 17:12] LABS: Blood Urea Nitrogen < 2 mg/dL (7-17)
[2019-12-09 17:48] LABS: Glucose Point of Care 108 (65-105)
--- NOTE | 2019-12-09 18:01 | PC.NURSE ---
This patient, Aidee Tomas, was received from ICU-11 on 12/09/19 at 1645. Personal belongings list checked and signed. Patient/family oriented to unit policies and routines
--- NOTE | 2019-12-09 18:07 | PM.IMPN ---
Progress Note: A&P Assessment and Plan (1) Delirium tremens: Code(s): F10.231 - Alcohol dependence with withdrawal delirium Status: Acute Assessment and Plan: Reported to have both visual and auditory hallucinations on admission but patient not complaining of hallucinations at this time. Still with tremors. Appreciate help from unpaid intern. Currently on IV Precedex but wean as tolerated. IV lorazepam available as needed. Started on oral scheduled Librium today. Advised patient she does need to pursue rehab for her alcoholism. She reports she has been hospitalized at [facility] for this previously and is currently on a waiting list to return. Will continue to monitor in ICU today. 12/09/19 18:07 Admitted with alcohol withdrawal including hallucinosis/tremors. Patient in ICU. started on CIWA protocol and IV Precedex, today patient is off Precedex however see keep requesting Ativan [id number] specially when a provided is present, patient on scheduled Librium will taper it as her symptoms improved and stable, otherwise patient is comfortable while sleeping and does not show any sign of tremors per nursing staff, it appears patient has and drug-seeking tendency. Seen by unpaid intern and Librium was increased to 75 mg every 6 hours and will continue Ativan, will transfer patient out of ICU today to IMU. (2) Alcohol withdrawal: Qualifiers: Complication of substance-induced condition: with perceptual disturbance Qualified Code(s): F10.232 - Alcohol dependence with withdrawal with perceptual disturbance Code(s): F10.239 - Alcohol dependence with withdrawal, unspecified Status: Acute Assessment and Plan: Continue CIWA-AR protocol. Seizure precautions. IV Ativan available as noted above. Continue thiamine and folic acid. (3) Alcoholic hepatitis: Qualifiers: Ascites presence: without ascites Qualified Code(s): K70.10 - Alcoholic hepatitis without ascites Code(s): K70.10 - Alcoholic hepatitis without ascites Status: Acute Assessment and Plan: AST 142 with ALT 59 on admission. Result of alcohol use. Will continue to monitor. (4) Seizures: Code(s): R56.9 - Unspecified convulsions Status: Chronic Assessment and Plan: On IV Keppra as noted above. Now patient is on oral Keppra clinically stable no seizures (5) Hypertension: Qualifiers: Hypertension type: unspecified Qualified Code(s): I10 - Essential (primary) hypertension Code(s): I10 - Essential (primary) hypertension Status: Chronic Assessment and Plan: Blood pressure reviewed on 12/08/2019. Initially elevated and most likely result of acute withdrawal. Blood pressure is now normal. Continue to hold oral home metoprolol. Will continue to monitor. (6) Systemic lupus erythematosus: Qualifiers: Systemic lupus erythematosus type: unspecified Systemic lupus erythematosus organ involvement: unspecified Qualified Code(s): M32.9 - Systemic lupus erythematosus, unspecified Code(s): M32.9 - Systemic lupus erythematosus, unspecified Status: Chronic Assessment and Plan: Stable. Not on medication at home. (7) DVT prophylaxis: Code(s): Z29.9 - Encounter for prophylactic measures, unspecified Status: Acute Assessment and Plan: SCDs. Subjective Date/time seen: 12/09/19 18:07 Admitted with alcohol withdrawal including hallucinosis/tremors. Patient in ICU. started on CIWA protocol and IV Precedex, today patient is off Precedex however see keep requesting Ativan [id number] specially when a provided is present, patient on scheduled Librium will taper it as her symptoms improved and stable, otherwise patient is comfortable while sleeping and does not show any sign of tremors per nursing staff, it appears patient has and drug-seeking tendency. Seen by unpaid intern and Librium was increased to 75 mg ever
[2019-12-09] MEDS: POTASSIUM CHLORIDE 20 MEQ PACKET (FOR LIQUID) 40 MEQ PO (20:41)
[2019-12-09] MEDS: LORAZEPAM 1 MG TABLET PO (20:45)
[2019-12-10] VITALS (12 sets, daily range): BP systolic 102–134; BP diastolic 71–96; PULSE 58–126; RESP 12–18; TEMP 35.8–37.1; O2SAT 99–100
[2019-12-10] MEDS: LORAZEPAM 1 MG TABLET PO ×5 (01:15→21:57)
[2019-12-10] MEDS: POTASSIUM CHLORIDE 20 MEQ PACKET (FOR LIQUID) 40 MEQ PO ×2 (01:15→11:20)
[2019-12-10] MEDS: CHLORDIAZEPOXIDE 25 MG CAPSULE 75 MG PO ×2 (01:15→10:59)
[2019-12-10] MEDS: LORAZEPAM INJ 2 MG/ML VIAL IV PUSH (02:43)
[2019-12-10 04:37] LABS: Hematocrit 31.9 % (37.0-47.0); Hemoglobin 10.5 g/dL (12.0-15.0); Mean Corpuscular HGB Conc 32.9 g/dl (32-36); Mean Corpuscular Hemoglobin 32.2 pg (26-34); Mean Corpuscular Volume 97.9 fl (80-100); Mean Platelet Volume 10.5 fl (7.4-10.4); Platelet Count Result 112 k/mm3 (150-375); Red Blood Count 3.26 M/mm3 (4.2-5.4); Red Cell Distribution Width 14.7 % (11.5-14.5); White Blood Count 3.9 K/mm3 (4.5-10.0)
[2019-12-10 04:52] LABS: Alanine Aminotransferase 44 U/L (4-35); Albumin Level 3.5 g/dL (3.5-5.1); Alkaline Phosphatase 84 U/L (38-126); Aspartate Amino Transferase 105 U/L (14-36); Bilirubin,Total 0.5 mg/dL (0.2-1.3); Blood Urea Nitrogen 2 mg/dL (7-17); Calcium 9.1 mg/dL (8.4-10.2); Carbon Dioxide 25 mmol/L (22-30); Chloride 107 mmol/L (98-107); Estimated CRCL calculation 106 ml/min; Estimated Glomerular Filt Rate > 60; Glucose 96 mg/dL (65-105); Magnesium 1.9 mg/dL (1.6-2.3); Potassium 3.9 mmol/L (3.4-5.0); Sodium 136 mmol/L (137-145)
[2019-12-10 05:50] LABS: Glucose Point of Care 102 (65-105)
--- NOTE | 2019-12-10 09:22 | PCPTNOTE ---
Attempted therapy session. Held pr RN, Pt is finally sleeping and did not sleep last night. Will attempt therapy again.
[2019-12-10] MEDS: ONDANSETRON INJ 4 MG/2 ML VIAL IV PUSH ×2 (10:53→21:25)
[2019-12-10] MEDS: levETIRAcetam Tablet 250 MG, levETIRAcetam Tablet 500 MG 750 MG PO ×2 (11:01→19:59)
[2019-12-10] MEDS: FOLIC ACID 1 MG TABLET PO (11:01)
[2019-12-10] MEDS: THIAMINE HCL 100 MG TABLET PO (11:02)
[2019-12-10] MEDS: MULTIVITAMINS THERAPEUTIC TAB (*BKC) 1 TABLET PO (11:03)
[2019-12-10] MEDS: ACETAMINOPHEN 325 MG TABLET 650 MG PO (11:04)
[2019-12-10] MEDS: PANTOPRAZOLE SODIUM IV 40 MG VIAL IV PUSH (11:12)
[2019-12-10] MEDS: NEOMYCIN/POLYMYXIN/BACITRACIN OINTMENT 15 GM TUBE 1 APPLIC TOPICAL (11:17)
[2019-12-10 11:46] LABS: Glucose Point of Care 100 (65-105)
--- NOTE | 2019-12-10 11:52 | PC.NURSE ---
This patient, Aidee Tomas, was transferred to [facility] on 12/10/19 at 1152. Personal belongings sent with patient. Report given to Eugene Cai. Appropriate documentation sent with patient.
--- NOTE | 2019-12-10 13:52 | PM.IMPN ---
Progress Note: A&P Assessment and Plan (1) Delirium tremens: Code(s): F10.231 - Alcohol dependence with withdrawal delirium Status: Acute Assessment and Plan: Reported to have both visual and auditory hallucinations on admission but patient not complaining of hallucinations at this time. Still with tremors. Appreciate help from shareholder. Currently on IV Precedex but wean as tolerated. IV lorazepam available as needed. Started on oral scheduled Librium today. Advised patient she does need to pursue rehab for her alcoholism. She reports she has been hospitalized at [place] for this previously and is currently on a waiting list to return. Will continue to monitor in ICU today. Admitted with alcohol withdrawal including hallucinosis/tremors. Patient in ICU. started on CIWA protocol and IV Precedex, today patient is off Precedex however see keep requesting Ativan [id number] specially when a provided is present, patient on scheduled Librium will taper it as her symptoms improved and stable, otherwise patient is comfortable while sleeping and does not show any sign of tremors per nursing staff, it appears patient has and drug-seeking tendency. Patient has been receiving Librium 75 mg every 6 hours and Ativan 1 mg every 1 hour as needed, yesterday patient clinically symptoms were improving will transfer patient out of ICU to IMU, today patient symptom improved much better her vitals are stable there is no tachycardia or tachypnea blood pressure is also close to normal, will move the patient to medical floor telemetry taper Librium to 50 mg every 6 hours and Ativan 1 mg every 4 hours as needed will continue physical therapy once clinically stable will discharge the patient home tomorrow as patient is out DT precaution since her last drink was over 72 hours. (2) Alcohol withdrawal: Qualifiers: Complication of substance-induced condition: with perceptual disturbance Qualified Code(s): F10.232 - Alcohol dependence with withdrawal with perceptual disturbance Code(s): F10.239 - Alcohol dependence with withdrawal, unspecified Status: Acute Assessment and Plan: Continue CIWA-AR protocol. Seizure precautions. IV Ativan available as noted above. Continue thiamine and folic acid. (3) Alcoholic hepatitis: Qualifiers: Ascites presence: without ascites Qualified Code(s): K70.10 - Alcoholic hepatitis without ascites Code(s): K70.10 - Alcoholic hepatitis without ascites Status: Acute Assessment and Plan: AST 142 with ALT 59 on admission. Result of alcohol use. Will continue to monitor. (4) Seizures: Code(s): R56.9 - Unspecified convulsions Status: Chronic Assessment and Plan: On IV Keppra as noted above. Now patient is on oral Keppra clinically stable no seizures (5) Hypertension: Qualifiers: Hypertension type: unspecified Qualified Code(s): I10 - Essential (primary) hypertension Code(s): I10 - Essential (primary) hypertension Status: Chronic Assessment and Plan: Blood pressure reviewed on 12/08/2019. Initially elevated and most likely result of acute withdrawal. Blood pressure is now normal. Continue to hold oral home metoprolol. Will continue to monitor. (6) Systemic lupus erythematosus: Qualifiers: Systemic lupus erythematosus type: unspecified Systemic lupus erythematosus organ involvement: unspecified Qualified Code(s): M32.9 - Systemic lupus erythematosus, unspecified Code(s): M32.9 - Systemic lupus erythematosus, unspecified Status: Chronic Assessment and Plan: Stable. Not on medication at home. (7) DVT prophylaxis: Code(s): Z29.9 - Encounter for prophylactic measures, unspecified Status: Acute Assessment and Plan: SCDs. Subjective Date/time seen: 12/10/19 13:52 Admitted with alcohol withdrawal including hallucinosis/tremors. Patient
[2019-12-10] MEDS: CHLORDIAZEPOXIDE 25 MG CAPSULE 50 MG PO ×2 (17:59→23:07)
[2019-12-10] MEDS: LORAZEPAM INJ 2 MG/ML VIAL 1 MG IV PUSH (22:46)
[2019-12-11] VITALS: PULSE 94
[2019-12-11] MEDS: LORAZEPAM 1 MG TABLET PO ×3 (01:53→10:43)
[2019-12-11 04:00] VITALS: PULSE 68
[2019-12-11] MEDS: CHLORDIAZEPOXIDE 25 MG CAPSULE 50 MG PO (05:59)
[2019-12-11 06:00] VITALS: BP 115/76; PULSE 68; RESP 18; TEMP 36.4; O2SAT 100
[2019-12-11 06:11] LABS: Hemoglobin 11.1 g/dL (12.0-15.0); Mean Corpuscular HGB Conc 32.6 g/dl (32-36); Mean Platelet Volume 10.3 fl (7.4-10.4); Platelet Count Result 136 k/mm3 (150-375); Red Blood Count 3.47 M/mm3 (4.2-5.4); White Blood Count 4.5 K/mm3 (4.5-10.0)
[2019-12-11 06:24] LABS: Alanine Aminotransferase 56 U/L (4-35); Albumin Level 3.9 g/dL (3.5-5.1); Alkaline Phosphatase 81 U/L (38-126); Aspartate Amino Transferase 103 U/L (14-36); Bilirubin,Total 0.4 mg/dL (0.2-1.3); Blood Urea Nitrogen 7 mg/dL (7-17); Calcium 9.5 mg/dL (8.4-10.2); Carbon Dioxide 26 mmol/L (22-30); Chloride 105 mmol/L (98-107); Estimated CRCL calculation 106 ml/min; Estimated Glomerular Filt Rate > 60; Glucose 101 mg/dL (65-105); Potassium 3.7 mmol/L (3.4-5.0); Sodium 138 mmol/L (137-145)
[2019-12-11 08:00] VITALS: PULSE 70
--- NOTE | 2019-12-11 09:20 | PC.NURSE ---
Pt stated she does not want her medication or assessment completed before 10:30 A.M. this morning due to not sleeping well.
[2019-12-11] MEDS: PANTOPRAZOLE SODIUM IV 40 MG VIAL IV PUSH (10:41)
[2019-12-11] MEDS: levETIRAcetam Tablet 250 MG, levETIRAcetam Tablet 500 MG 750 MG PO (10:43)
[2019-12-11] MEDS: ONDANSETRON INJ 4 MG/2 ML VIAL IV PUSH (10:43)
[2019-12-11] MEDS: FOLIC ACID 1 MG TABLET PO (10:43)
[2019-12-11] MEDS: MULTIVITAMINS THERAPEUTIC TAB (*BKC) 1 TABLET PO (10:43)
[2019-12-11] MEDS: THIAMINE HCL 100 MG TABLET PO (10:43)
[2019-12-11] MEDS: NEOMYCIN/POLYMYXIN/BACITRACIN OINTMENT 15 GM TUBE 1 APPLIC TOPICAL (10:44)
--- NOTE | 2019-12-11 10:45 | PM.DS ---
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 Still with tremors. Appreciate help from vine pruner. Currently on IV Precedex but wean as tolerated. IV lorazepam available as needed. Started on oral scheduled Librium today. Advised patient she does need to pursue rehab for her alcoholism. She reports she has been hospitalized at [facility] [place] for this previously and is currently on a waiting list to return. Will continue to monitor in ICU today. Admitted with alcohol withdrawal including hallucinosis/tremors. Patient in ICU. started on CIWA protocol and IV Precedex, today patient is off Precedex however see keep requesting Ativan [id number] specially when a provided is present, patient on scheduled Librium will taper it as her symptoms improved and stable, otherwise patient is comfortable while sleeping and does not show any sign of tremors per nursing staff, it appears patient has and drug-seeking tendency. Patient has been receiving Librium 75 mg every 6 hours and Ativan 1 mg every 1 hour as needed, yesterday patient clinically symptoms were improving will transfer patient out of ICU to IMU, today patient symptom improved much better her vitals are stable there is no tachycardia or tachypnea blood pressure is also close to normal, will move the patient to medical floor telemetry taper Librium to 50 mg every 6 hours and Ativan 1 mg every 4 hours as needed will continue physical therapy once clinically stable will discharge the patient home tomorrow as patient is out DT precaution since her last drink was over 72 hours. (2) Alcohol withdrawal: Qualifiers: Complication of substance-induced condition: with perceptual disturbance Qualified Code(s): F10.232 - Alcohol dependence with withdrawal with perceptual disturbance Code(s): F10.239 - Alcohol dependence with withdrawal, unspecified Status: Acute Assessment and Plan: Continue CIWA-AR protocol. Seizure precautions. IV Ativan available as noted above. Continue thiamine and folic acid. (3) Alcoholic hepatitis: Qualifiers: Ascites presence: without ascites Qualified Code(s): K70.10 - Alcoholic hepatitis without ascites Code(s): K70.10 - Alcoholic hepatitis without ascites Status: Acute Assessment and Plan: AST 142 with ALT 59 on admission. Result of alcohol use. Will continue to monitor. (4) Seizures: Code(s): R56.9 - Unspecified convulsions Status: Chronic Assessment and Plan: On IV Keppra as noted above. Now patient is on oral Keppra clinically stable no seizures (5) Hypertension: Qualifiers: Hypertension type: unspecified Qualified Code(s): I10 - Essential (primary) hypertension Code(s): I10 - Essential (primary) hypertension Status: Chronic Assessment and Plan: Blood pressure reviewed on 12/08/2019. Initially elevated and most likely result of acute withdrawal. Blood pressure is now normal. Continue to hold oral home metoprolol. Will continue to monitor. (6) Systemic lupus erythematosus: Qualifiers: Systemic lupus erythematosus type: unspecified Systemic lupus erythematosus organ involvement: unspecified Qualified Code(s): M32.9 - Systemic lupus erythematosus, unspecified Code(s): M32.9 - Systemic lupus erythematosus, unspecified Status: Chronic Assessment and Plan: Stable. Not on medication at home. (7) DVT prophylaxis: Code(s): Z29.9 - Encounter for prophylactic measures, unspecified Status: Acute Assessment and Plan: SCDs
[2019-12-11] MEDS: POTASSIUM CHLORIDE 20 MEQ TABLET 40 MEQ PO (10:49)
--- NOTE | 2019-12-11 11:42 | PCNFU ---
Nutrition Follow-Up Complete: Inadequate Oral Intake as related to Ab pain/ETOH as evidenced by poor po intake reported and weight loss of 2-13 ibs in the past 3 months Goal: Adequate Intake of at least 75% of meals/supplements Progressing towards goal. Will continue current goal. Pt current nutrition is Regular . Nutrition recommendation: Regular. Last recorded weight is 75.3 kg. Bowel Motility:+BM reported 12/09 Labs Reviewed:Hct 34.0, Hgb 11.1 Meds Noted:Zofran, Librium, Atavan, Folic Acid, MVI Additional Notes: Spoke with patient over telephone due to COVID 19 precautions. Diet order Regular with Ensure Compact BID. Intake's have been 5-100% of meals. She states to drinking diet supplements which are providing 220 kcals and 9 gms protein. I encouraged po intake. Monitoring: RD will monitor every 5 days.
[2019-12-11 12:00] VITALS: PULSE 97
== END 2019-12-11 12:35 | disposition home or self-care (01) | DRG 775 ==
LOC: ANHED 23:04 → ANHICU 12-07 02:09 → ANHIMU 12-10 11:24 → ANH3MEDSUR 12-11 10:45 → ANHICU 12-12 12:48 → ANHIMU 12-12 12:48
PROVIDERS: Emergency Medicine; Emergency Medicine Emergency Medical Services; Internal Medicine; Admitting Provider Family Medicine; Emergency Provider Emergency Medicine; Visit Provider Family Medicine
DX: F10.231 Alcohol dependence with withdrawal delirium (principal); F10.232 Alcohol dependence with withdrawal with perceptual disturbance; F10.251 Alcohol dependence with alcohol-induced psychotic disorder with hallucinations; K70.0 Alcoholic fatty liver; K70.10 Alcoholic hepatitis without ascites; R56.9 Unspecified convulsions; D69.59 Other secondary thrombocytopenia; I10 Essential (primary) hypertension; M32.9 Systemic lupus erythematosus, unspecified; E87.6 Hypokalemia; F41.9 Anxiety disorder, unspecified; Z87.891 Personal history of nicotine dependence
CPT/HCPCS: 36415; 74177; 80048; 80053; 80307; 81001; 81025; 82948; 83690; 83735; 84702; 85025; 85027; 85055; 96361; 96365; 96367; 96374; 96375; 97110; 97116; 97161; 97530; 99285; A9270; C9113; J1885; J1953; J2060; J2405; J2543; J3411; J3475; J7030; J7042; J7120; J7121; Q9967